=== PATIENT | male | born 2005 | race Two or more races ===

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

== ENCOUNTER 2025-08-26 11:19 | Outpatient (REF) | payer MEDICAID, SELFPAY ==
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
--- OUTSIDE RECORDS SUMMARY | 2025-08-26 13:42 | XMS_ITS | Encounter Summary ---
Author Organization [facility] Address [address] [place] [address] Phone Care Team Providers Care Car Repossessor Name Role Phone Loren Mcdermott MD Primary Care Provider Ary trujillo Encounter Details Date Type Department Care Team (Late st Contact Info) Description 06/19/2017 Conversion Encounter [facility] - [address] [address] Social History Tobacco Use Types Packs/Day Years Used Date Smoking Tobacco: Never Comments:Never smoker Sex and Gender Information Value Date Recorded Sex Assigned at Male 09/02/2019 1:50 PM EDT Legal Sex Male 5:24 PM EDT Gender Identity Male 09/02/2019 1:50 PM EDT Sexual Orientation Straight 11/09/2020 9: 48 AM EST documented as of this encounter Plan of Treatment Not on file documented as of this encounter Visit Diagnoses Not on filedocumented in this encounter Care Teams Car Repossessor Relationship Specialty Start Date End Date Lorne Mcdermott MD PCP - General 09/23/18 09/30/18 documented as of this encounter
--- OUTSIDE RECORDS SUMMARY | 2025-08-26 13:42 | XMS_ITS | Encounter Summary ---
Author Organization [facility] Address [address] [place] [phone] Phone Care Team Providers Care Drywall Applicator Name Role Phone Lorne Mcdermott MD Primary Care Provider Ary trujillo Encounter Details Date Type Department Care Team (Late st Contact Info) Description 01/27/2017 Documentation [facility] [address] [place], [place] [id number] Family Medicine, Physician [address] [place] [address] Social History Tobacco Use Types Packs/Day Years [...] on filedocumented in this encounter Care Teams Drywall Applicator Relationship Specialty Start Date End Date Lorne Mcdermott MD PCP - General 09/23/18 09/30/18 documented as of this encounter
--- OUTSIDE RECORDS SUMMARY | 2025-08-26 13:42 | XMS_ITS | Encounter Summary ---
Author Organization [facility] Address [address] [place] [phone] Phone Care Team Providers Care Veneer Jointer Operator Name Role Phone Lorne Mcdermott MD Primary Care Provider Ary trujillo Encounter Details Date Type Department Care Team (Late st Contact Info) Description 06/18/2017 Documentation [facility] Family Medicine [address] [place], [place] [id number] Family Medicine, Physician [address] [place] [address] Social History Tobacco Use Types Packs/Day Years [...] on filedocumented in this encounter Care Teams Veneer Jointer Operator Relationship Specialty Start Date End Date Lorne Mcdermott MD PCP - General 09/23/18 09/30/18 documented as of this encounter
--- OUTSIDE RECORDS SUMMARY | 2025-08-26 13:42 | XMS_ITS | Encounter Summary ---
Author Organization [email or web address] [facility] Address [address] [place] [address] [address] [place] [id number] Care Team Providers Care Brake Repairer Name Role Phone Eleonora Rogers CNP Primary Care Provider [phone] Encounter Details Date Type Department Care Team (Latest Contact Info) Description 08/26/2025 Travel Social History Tobacco Use Types Packs/Day Years Used Date Smoking Tobacco: Never Passive Smoke Exposure: Never Smokeless Tobacco: Never Sex and Gender Information Value Date Recorded Sex Assigned at Male 09/02/2022 10:17 AM EDT Legal Sex Male 10:17 AM EDT Gender Identity Male 09/02/2022 10:17 AM EDT Sexual Orientation Straight 09/02/2022 10 :17 AM EDT documented as of this encounter Plan of Treatment Upcoming Encounters Date Type Department Care Team (Late st Contact Info) Description 09/12/2025 9:30 AM EST Clinical Support [facility] [address] [place] [address] 09/16/2025 10:00 AM EST Office Visit [facility] [address] [place] [address] Eleonora Rogers CNP [address] [place] [address] documented as of this encounter Visit Diagnoses Not on filedocumented in this encounter Care Teams Brake Repairer Relationship Specialty Start Date End Date Eleonora Rogers CNP [address] [place] [address] PCP - General Family Medicine 08/26/25 documented as of this encounter
--- OUTSIDE RECORDS SUMMARY | 2025-08-26 13:42 | XMS_ITS | Encounter Summary ---
Author Organization [facility] Address [address] [place] [address] Phone Care Team Providers Care Lmft Name Role Phone Lorne Mcdermott MD Primary Care Provider Ary trujillo Encounter Details Date Type Department Care Team (Late st Contact Info) Description 06/19/2017 Documentation [facility] [place] Medicine [address] [place], [place] [phone] Family Medicine, Physician [address] [place] [address] Social History Tobacco Use Types Packs/Day Years [...] on filedocumented in this encounter Care Teams Lmft Relationship Specialty Start Date End Date Lorne Mcdermott MD PCP - General 09/23/18 09/30/18 documented as of this encounter
--- OUTSIDE RECORDS SUMMARY | 2025-08-26 13:42 | XMS_ITS | Encounter Summary ---
Author Organization [facility] Address [address] [place] [address] Phone Care Team Providers Care Ship Engines Operating Engineer Name Role Phone Lorne Mcdermott MD Primary Care Provider Ary trujillo Encounter Details Date Type Department Care Team (Late st Contact Info) Description 05/23/2017 Documentation [facility] [place] [address] [place], [place] [phone] Family Medicine, Physician [address] [place] [address] Social History Tobacco Use Types Packs/Day Years [...] on filedocumented in this encounter Care Teams Ship Engines Operating Engineer Relationship Specialty Start Date End Date Lorne Mcdermott MD PCP - General 09/23/18 09/30/18 documented as of this encounter
--- OUTSIDE RECORDS SUMMARY | 2025-08-26 13:42 | XMS_ITS | Clinical Summary ---
Author Organization [employer] Address [address] [place] [address] Care Team Providers Care Coat Baster Name Role Phone Eleonora Rogers SPORTS COORDINATOR Primary Care Provider [phone] Allergies Active Allergy Reactions Criticality Noted Date Comments Food 08/12/2017 Fresh vegetables, fresh fruit Germanium 08/19/2025 Molds & Smuts 08/12/2017 Penicillins High 01/26/2016 Pollen Extract 08/12/2017 Dogs, cats, mice, dust [place] Extract 08/19/2025 Medications azithromycin (Zithromax) 250 MG tablet TAKE 2 TABLETS BY MOUTH ON DAY 1, THEN TAKE 1 TABLET DAILY ON DAYS 2-5 08/02/20 25 Active Albuterol Sulfate (ProAir RespiClick) 108 (90 Base) MCG/ACT aerosol powder Inhale 2 puffs every 4 (four) hours. Active chlorhexidine (Peridex) 0.12 % solution Place 15 mL into mouth between cheek and gum every 12 (twelve) hours. 02/03/20 19 Active traZODone (Desyrel) 50 MG tablet Take 50 mg by mouth at bedtime. 04/18/20 20 Active hydroCHLOROthiaz elmer (HYDRODiuril) 25 MG tabletIndication s:Primary hypertension Take 1 tablet (25 mg) by mouth Once per day. 30 tablet 11 08/26/20 25 026 Active Cetirizine HCl 10 MG capsule 025 Discontinued cholecalciferol (Vitamin D-3) 50 MCG (1999) capsule Take by mouth at bed time. 06/10/20 22 025 Discontinued clotrimazole (Lotrimin) 1 % cream Apply topically every 12 (twelve) hours. 06/06/20 22 025 Discontinued cyclobenzaprine (Flexeril) 10 MG tablet Take 10 mg by mouth if needed in the morning, at noon, and at bedtime. 04/24/20 21 025 Discontinued famotidine (Pepcid) 20 MG tablet Take 1 tablet by mouth. 08/02/20 21 025 Discontinued Active Problems Problem Noted Date Diagnosed Date Abdominal pain 08/19/2025 Black stools 08/19/2025 Closed fracture of scapula 08/19/2025 Closed fracture of sternum 08/19/2025 Contusion of both lungs 08/19/2025 Epigastric pain 08/19/2025 Functional constipation 08/19/2025 Gastroesophageal reflux disease 08/19/2025 Hematochezia 08/19/2025 High alanine aminotransferase (ALT) level 2024 Indigestion 08/19/2025 Nonalcoholic fatty liver 08/19/2025 Pain associated with defecation 08/19/2025 Pneumothorax, left 08/19/2025 History of 2019 novel coronavirus disease (COVID -19) 02/04/2022 Overview (08/19/2025): Nov 2021 COVID-19 vaccination refused 02/04/2022 Refused influenza vaccine 09/13/2021 Fatty liver 09/02/2019 Overview (08/19/2025): 08/23- Saw adult GI... lots of lab work and US.. still with elevated liver enzymes, US c/w fatty liver. Sugg dietary change and exercise. 08/21 - Abnormal LFT's, has seen GI, needs f/u. Not taking Vit E, Poor vision 09/02/2019 Anxiety 08/30/2018 Overview (08/19/2025): Sees therapist at school, not sure what agency. Seasonal allergic rhinitis 08/30/2018 BMI 39.0-39.9,adult 08/12/2017 Multiple food allergies 08/12/2017 Psychosocial stressors 08/12/2017 Overview (08/19/2025): Presently in care of grandparents, open DCF case Eczema 01/17/2010 Encounters Date Type Department Care Team Description 08/26/2025 10:45 AM EDT Office Visit [facility] [address] [place] [address] Eleonora Rogers CNP Encounter for physical examination (Primary Dx); Dislocation of left shoulder joint, sequela; Primary hypertension 08/26/2025 Travel 08/19/2025 Telephone [facility] [address] [place] [address] Kendy Lucero MA chart prep 08/19/2025 Patient Outreach [facility] [address] [place], [place] [phone] Art Fajardo MD Pre-visit Planning (SDOH screening unable to complete. ) 07/20/2025 Telephone [facility] [address] [place] [address] Art Fajardo MD CHW - New Patient Assistance from Last 3 Months Immunizations Immunization Administration Dates Next Due COVID-19 Non-US Vaccine, Pro duct Unknown 09/12/2006 DTaP, 5 pertussis antigens 08/04/2008,,01/20/2004,07/14,2003 HPV 9-Valent 08/12/2017,02/02/2016 Hep A, ped/adol, 2 dose 02/02/2016,11/04/2014 Hep B, Adolescent or Pediatric 6,09/12/2006,01/20/2004,04/08 Hep B, Unspecified 01/20/2004 Hib (PRP-T) 09/12/2006, 5,01/20/2004,07/14,2003 Hib / Hep B 09/12/2006 IPV 08/04/2008, 4,2003,05/17 Influenza injectable quadriv alent preservative free 11/09/2020,09/02/2019,08/28/2018,08/12 Influenza live intranasal qu adrivalent LIAV4 10/15/2013 Influenza, IIV3, injectable 12/04/2009, 6,11/26/2004 Influenza, Split (incl. nereida fied surface antigen) 12/07/2010 MMR 08/04/2008,03/23/2004 Meningococcal MCV4P ACYW-135 09/02/2019,11/04/19 15 Novel [id number], all formulations 12/04/2009 Pneumococcal Conjugate PCV 7 11/26/2004, 01/20/2004,2003,05/17 Tdap 04/30/2021,11/04/2014 Varicella 08/04/2008,03/23/2004 Social History Tobacco Use Types Packs/Day Years Used Date Smoking Tobacco: Never Passive Smoke Exposure: Never Smokeless Tobacco: Never Tobacco Cessation:Counseling Given: Not Answered Sex and Gender Information Value Date Recorded Sex Assigned at Male 09/02/2022 10:17 AM EDT Legal Sex Male 10:17 AM EDT Gender Identity Male 09/02/2022 10:17 AM EDT Sexual Orientation Straight 09/02/2022 10 :17 AM EDT Last Filed Vital Signs Vital Sign Reading [...] Mass Index 34.67 08/26/2025 10:26 AM EDT Plan of Treatment Upcoming Encounters Date Type Department Care Team (Late st Contact Info) Description 09/12/2025 9:30 AM EST Clinical Support [facility] [address] [place] [address] 09/16/2025 10:00 AM EST Office Visit [facility] [address] [place] [address] Eleonora Rogers, SPORTS COORDINATOR [address] [place] [address] Health Maintenance Due Date Last Done Comments Chlamydia and Gonorrhea Screening 2003 Depression Screening 2003 SDOH Screening 2003 Disability Screening 2003 Alcohol/Substance Use Screening 2015 Family Planning (PISQ) 2018 Meningococcal B Vaccine (1 of 2 - Standard) 2019 Hepatitis C Screening 2021 Influenza Vaccine (#1) 2026 , 09/02/2019, 08/28/2018, Additional history exists Postponed from 07/04/2025 (Patient Refused) COVID-19 Vaccine ( - season) 2026 Postponed from 07/04/2025 (Patient Refused) Tobacco Screening 08/26/2026 08/26/2025 Lipid Panel 06/06/2027 06/06/2022 DTaP/Tdap/Td Vaccines (8 - Td or Tdap) 04/30/2031 04/30/2021, 11/04/2014, 08/04/2008, Additional history exists Zoster Vaccines (1 of 2) 2053 RSV Patients and Patients Aged 60 years or older (1 - 1-dose 75+ series) 2078 Pneumococcal Vaccine: Pediatrics (0 to 5 Years) and At-Risk Patients (6 to 49) Years Aged Out 11/26/2004, 01/20/2004, 2003, Additional history exists No longer eligible based on patient's age to complete this topic HIB Vaccines Completed 09/12/2006, 09/03, 11/26/2004, Additional history exists IPV Vaccines Completed 08/04/2008, 01/01, 2003, Additional history exists Hepatitis A Vaccines Completed 02/02/2016, 11/04/19 15 Hepatitis B Vaccines Completed 02/02/2016, 09/12/2006, 09/12/2006, Additional history exists HPV Vaccines Completed 08/12/2017, 02/02/2016 Meningococcal Vaccine Completed 09/02/2019, 015 HIV Screening Completed 06/06/2022 RSV under 20 months Aged Out No longe r eligible based on patient's age to complete this topic Rotavirus Vaccines Aged Out No longer eligible based on patient's age to complete this topic Procedures Procedure Name Priority Date/Time Associated Diagnosis Comments HIV 1/2 ANTIGEN/ANTIBODY, FOURTH GENERATION W/RFL Routine 06/06/2022 1:58 PM EDT LIPID PANEL, STANDARD Routine 06/06/2022 1:58 PM EDT from Last 3 Months or Most Recently Relevant to Health Maintenance Results * HIV 1/2 ANTIGEN/ANTIBODY,FOURTH GENERATION W/RFL (06/06/2022 1:58 PM EDT) Pathologist [facility] HIV-1/2 ANTIGEN AND ANTIBODIES, 4TH GENERATION W/ REFLEX NON-REACT JAZMYNE NON-REACT JAZMYNE [facility] Comment: HIV-1 antigen and HIV-1/HIV-2 antibodies were not detected. There is no laboratory evidence of HIV infection. PLEASE NOTE: This information has been disclosed to you from records whose confidentiality may be protected by state law. If your state requires such protection, then the state law prohibits you from making any further disclosure of the information without the specific written consent of the person to whom it pertains, or as otherwise permitted by law. A general authorization for the release of medical or other information is NOT sufficient for this purpose. For additional information please refer to http://education.[employer].Razient/faq/DKJ915 (This link is being provided for informational/ educational purposes only.) The performance of this assay has not been clinically validated in patients less than 2 years old. 06/06/2022 1:58 PM EDT us Afsaneh Zhao MEDICAL COLLECTIONS SPECIALIST LAB BLOOD ORDERABLES Final Res ult [facility] [address] * (ABNORMAL) LIPID PANEL, STANDARD (06/06/2022 1:58 PM EDT) Pathologist [facility] Chol/HDLC Ratio 5.1(H) <5.0 (calc) [facility] Cholesterol, Total 143 <170 mg/dL [facility] HDL Cholesterol 28(L) >45 mg/dL [facility] LDL Cholesterol 83 <110 mg/dL (calc) [facility] Comment: LDL-C is now calculated using the Maximo calculation, which is a validated novel method providing better accuracy than the Friedewald equation in the estimation of LDL-C. Carlton BOWEN et al. YADIRA. 2013;310(19): 3922-7712 (http://Clearwire.evocatal/faq/STO373) Non-HDL Cholesterol 115 <120 mg/dL (calc) [facility] Comment: For patients with diabetes plus 1 major ASCVD risk factor, treating to a non-HDL-C goal of <100 mg/dL (LDL-C of <70 mg/dL) is considered a therapeutic option. Triglycerides 228(H) <90 mg/dL [facility] Comment: If a non-fasting specimen was collected, consider repeat triglyceride testing on a fasting specimen if clinically indicated. Swati et al. J. of Clin. Lipidol. 2015;9:129-169. 06/06/2022 1:58 PM EDT us Afsaneh Zhao [facility] LAB BLOOD ORDERABLES Final Res ult [facility] [address] from Last 3 Months or Most Recently Relevant to Health Maintenance Insurance C3 Care Teams Coat Baster Relationship Specialty Start Date End Date Eleonora Rogers CNP [address] [place] [phone] PCP - General Family Medicine 08/26/25
--- OUTSIDE RECORDS SUMMARY | 2025-08-26 13:42 | XMS_ITS | Encounter Summary ---
Author Organization [facility] Address [address] [place] [address] Phone Care Team Providers Care Addiction Social Worker Name Role Phone Unavailable Primary Care Provider Unavailabl e Encounter Details Date Type Department Care Team (Latest Contact Info) Description 08/07/2020 ED [facility] Social History Tobacco Use Types Packs/Day Years Used Date Smoking Tobacco: Never Smokeless Tobacco: Never Comments:Never smoker Alcohol Use Standard Drinks/Week Comments No 0 (1 standard drink = 0.6 oz pur e alcohol) Hunger/Food Answer Date Recorded No 07/29/2020 Stable Housing Answer Date Recorded No 07/29/2020 Transportation Concerns Answer Date Rec orded No 07/29/2020 Hazards in Home Answer Date Recorded No 11/21/2018 Financing Utilities Answer Date Recorde d No 11/21/2018 Safety at Home Answer Date Recorded No 11/21/2018 Outside Support Answer Date Recorded No 11/21/2018 Understanding Health Concerns Answer Da te Recorded No 11/21/2018 Financing Health Concerns Answer Date R ecorded No 11/21/2018 Missing School or Work Answer Date Kevin rded No 11/21/2018 Sex and Gender Information Value Date Recorded Sex Assigned at Male 09/02/2019 1:50 PM EDT Legal Sex Male 5:24 PM EDT Gender Identity Male 09/02/2019 1:50 PM EDT Sexual Orientation Straight 11/09/2020 9: 48 AM EST documented as of this encounter ED Notes * DOCUMENTS, [facility] - 08/07/2020 7:27 PM EDT EDPDOC [facility] EDM *LIVE* ED Physician Documentation Summary Report Patient: ELLEN BARNES JR 15/M Service Date: 08/07/20 Account: [id number] : 2005 Service Time: 1928 PCP: PRASANNA MR#: [id number] Pre-Evaluation Initial Comments 15 year old male complaining of Anxiety It Feels Like Anixety Pre-Evaluation Screening Done: Yes Acute Distress: No Vital Signs Reviewed: Yes Further ER Evaluation Required: Yes Known Signs of Infection: No Ebola Infection Screening: No Risk CHARLIE KING Aug 07, 2020 16:26 ED Physician: CHARLIE KING Documentation Date/Time: 08/07/20 1626 Cosigner: BEN DESAI MD Cosigner: <Electronically signed by TIO RUFFIN> 08/07/20 1626 <Electronically signed by BEN DESAI MD> 08/10/20 1024 documented in this encounter Plan of Treatment Not on file documented as of this encounter Visit Diagnoses Not on filedocumented in this encounter
--- OUTSIDE RECORDS SUMMARY | 2025-08-26 13:42 | XMS_ITS | Encounter Summary ---
Author Organization [facility] Address [address] [place] [address] Phone Care Team Providers Care Steel Engraver Name Role Phone Lorne Mcdermott MD Primary Care Provider Ary trujillo Encounter Details Date Type Department Care Team (Late st Contact Info) Description 07/13/2012 Documentation [facility] [place] Family Medicine [address] [place], [place] [phone] Family Medicine, Physician [address] [place] [address] Social History Tobacco Use Types Packs/Day Years Used Date Smoking Tobacco: Never Assessed Sex and Gender Information Value Date Recorded Sex Assigned at Male 09/02/2019 1:50 PM EDT Legal Sex Male 5:24 PM EDT Gender Identity Male 09/02/2019 1:50 PM EDT Sexual Orientation Straight 11/09/2020 9: 48 AM EST documented as of this encounter Plan of Treatment Not on file documented as of this encounter Visit Diagnoses Not on filedocumented in this encounter Care Teams Steel Engraver Relationship Specialty Start Date End Date Lorne Mcdermott MD PCP - General 09/23/18 09/30/18 documented as of this encounter
--- OUTSIDE RECORDS SUMMARY | 2025-08-26 13:42 | XMS_ITS | Encounter Summary ---
Author Organization [facility] Address [address] [place] [address] Phone Care Team Providers Care Gas Or Water Meter Installer Name Role Phone Lorne Mcdermott MD Primary Care Provider Ary trujillo Encounter Details Date Type Department Care Team (Late st Contact Info) Description 01/29/2012 Documentation [facility] [place] Family Medicine [address] [place], [place] [phone] Family Medicine, Physician [address] [place] [address] Social History Tobacco Use Types Packs/Day Years [...] on filedocumented in this encounter Care Teams Gas Or Water Meter Installer Relationship Specialty Start Date End Date Lorne Mcdermott MD PCP - General 09/23/18 09/30/18 documented as of this encounter
--- OUTSIDE RECORDS SUMMARY | 2025-08-26 13:42 | XMS_ITS | Encounter Summary ---
Author Organization [facility] Address [address] [place] [address] Phone Care Team Providers Care Singer And Unloader Name Role Phone Lorne Mcdermott MD Primary Care Provider Ary trujillo Encounter Details Date Type Department Care Team (Late st Contact Info) Description 01/29/2012 Documentation [facility] [place] Family Medicine [address] [place], [place] [phone] Family Medicine, Physician [address] [place] [address] Social History Tobacco Use Types Packs/Day Years [...] on filedocumented in this encounter Care Teams Singer And Unloader Relationship Specialty Start Date End Date Lorne Mcdermott MD PCP - General 09/23/18 09/30/18 documented as of this encounter
--- OUTSIDE RECORDS SUMMARY | 2025-08-26 13:42 | XMS_ITS | Encounter Summary ---
Author Organization [facility] Address [address] [place] [address] Phone Care Team Providers Care Yard Conductor Name Role Phone Lorne Mcdermott MD Primary Care Provider Ary trujillo Encounter Details Date Type Department Care Team (Late st Contact Info) Description 05/04/2012 [place] [facility] [place] [address] [place], [place] [phone] Family Medicine, Physician [address] [place] [address] Social History Tobacco Use Types Packs/Day Years [...] on filedocumented in this encounter Care Teams Yard Conductor Relationship Specialty Start Date End Date Lorne Mcdermott MD PCP - General 09/23/18 09/30/18 documented as of this encounter
--- OUTSIDE RECORDS SUMMARY | 2025-08-26 13:42 | XMS_ITS | Clinical Summary ---
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 0 7 Active fluticasone (FLONASE) 50 MCG/ACT nasal sprayIndications :Chronic seasonal allergic rhinitis due to pollen Administer 2 sprays into each nostril daily. 1 Units 3 9 Active Probiotic Product (Probiotic Complex Acidophilus) capsuleIndicatio ns:Diarrhea, unspecified type Take 1 tablet as directed daily 90 capsule 1 0 Active Additional Information Patient not taking.Reported on 02/04/2022 traZODone 50 MG tablet TAKE 1 TABLET BY MOUTH EVERYDAY AT BEDTIME 0 Active omeprazole 20 MG delayed-release capsuleIndicatio ns:Gastroesophag eal reflux disease, unspecified whether esophagitis present Take 1 capsule (20 mg total) by mouth daily. Take medicine one hour before eating. 30 capsule 2 1 Active Additional Information Patient not taking.Reported on 02/16/2022 loratadine (Claritin) 10 MG tabletIndication s:Chronic seasonal allergic rhinitis due to pollen Take 1 tablet (10 mg total) by mouth daily. 30 tablet 5 1 Active Additional Information Patient not taking.Reported on 02/16/2022 cyclobenzaprine 10 MG tablet Take 10 mg by mouth 3 (three) times a day as needed. for muscle spams 1 Active famotidine 20 MG tablet Take 20 mg by mouth 2 (two) times a day as needed. 1 Active Active Problems Problem Noted Date Diagnosed Date History of 2018 novel coronavirus disease (COVID -19) 02/04/2022 Overview (02/04/2022): Nov 2021 COVID-19 vaccination refused 02/04/2022 Refused influenza vaccine 09/13/2021 Assessment & Plan (09/13/2021 9:25 AM EST): 09/23 Fatty liver 09/02/2019 Overview (09/13/2021): 08/23- Saw adult GI... lots of lab work and US.. still with elevated liver enzymes, US c/w fatty liver. Sugg dietary change and exercise. 08/21 - Abnormal LFT's, has seen GI, needs f/u. Not taking Vit E, Poor vision 09/02/2019 Seasonal allergic rhinitis 08/30/2018 Anxiety 08/30/2018 Overview (02/04/2022): Sees therapist at school, not sure what agency. Assessment & Plan (07/13/2021 4:17 PM EDT): WHO with Eliane Trin[facility], today. Psychosocial stressors 08/12/2017 Overview (09/02/2019): Presently in care of grandparents, open DCF case Assessment & Plan (12/16/2017 5:23 PM EST): See previous notes, should see a counselor. BMI 39.0-39.9,adult 08/12/2017 Assessment & Plan (12/16/2017 5:23 PM EST): Probable cause of increased liver enzymes, Assessment & Plan (08/12/2017 12:23 PM EDT): Encouraged to eat healthy, add cardio to exercise program Multiple food allergies 08/12/2017 Assessment & Plan (08/12/2017 12:25 PM EDT): With oral allergies to many raw veggies and fruits,told to follow up with boarding mother, should eat more cooked vegetables (likes broccoli) Eczema 01/17/2010 Resolved Problems Problem Noted Date Diagnosed Date Resolved Date Acne vulgaris 08/28/2018 09/02/2019 Mild intermittent asthma without complication 12/03/19 18 02/04/2022 Chest pain on breathing 07/22/201708/04 Assessment & Plan (12/16/2017 5:21 PM EST): Same assessment, is precordial catch Assessment & Plan (08/12/2017 10:46 AM EDT): Seems now to be clearly reflux (and stress) related, cardi w/u in ED negative Assessment & Plan (07/22/2017 4:22 PM EDT): From heartache , mostly stress, but may well have reflux since describes burning, is at risk, being obese, no signs of heart nor lung problems, like asthma. Practice your breathing exercises, take zantac Right upper quadrant abdominal pain 07/22/2017 08/12/2017 Assessment & Plan (08/12/2017 10:44 AM EDT): Better now Assessment & Plan (07/22/2017 4:24 PM EDT): With a positive mcconnell's sign , eats a lot of fatty food, I wonder about gall bladder disease. Episodic tension-type headache 07/22/2017 09/02/2019 Assessment & Plan (12/16/2017 5:22 PM EST): Is related to stress, with sensitivity to light, may well be migraines. Assessment & Plan (08/12/2017 10:44 AM EDT): improving Assessment & Plan (07/22/2017 4:23 PM EDT): From stress, no signs of INFORMATION SYSTEMS COORDINATOR disease Gastroesophageal reflux 07/22/201703/03 Assessment & Plan (12/16/2017 5:26 PM EST): Never got the ranitidine as instructed. Please get it. Also will refer to GI. Assessment & Plan (08/12/2017 11:05 AM EDT): Causing chest pain, at least in part, got claritin, represprescribed ranitidine Assessment & Plan (07/22/2017 4:23 PM EDT): See above. Avoid spicy foods. Adjustment disorder with depressed mood 07/22/2017 03/17/2018 Assessment & Plan (08/12/2017 10:46 AM EDT): Secondary to severe psychosocial stressors Assessment & Plan (07/22/2017 4:25 PM EDT): After parents separation, by history, unstable behavior by mom, with some suicidal ideation, now better. See therapist, call if has any self injurious thoughts, and call crisis. See me in a month. Chest pain on breathing From heartache , mostly stress, but may well have reflux since describes burning, is at risk, being obese, no signs of heart nor lung problems, like asthma. Practice your breathing exercises, take zantac Gastroesophageal reflux See above. Avoid spicy foods. Episodic tension-type headache From stress, no signs of INFORMATION SYSTEMS COORDINATOR disease Right upper quadrant abdominal pain With a positive mcconnell's sign , eats a lot of fatty food, I wonder about gall bladder disease. 1. Chest pain on breathing 2. Right upper quadrant abdominal pain 3. Episodic tension-type headache, not intractable 4. Gastroesophageal reflux disease, esophagitis presence not specified ranitidine 150 MG tablet 5. Adjustment disorder with depressed mood Childhood obesity 07/14/2012 08/30/2018 Redundant prepuce and phimosis 07/14/2012 09/02/2019 Immunizations Immunization Administration Dates Next Due DTaP 5 08/04/2008, 5,01/20/2004,07/14,2003 H1N1 12/04/2009 HPV Vaccine 9 Valent 08/12/2017,02/02/2016 Hep A, ped/adol 02/02/2016,11/04/2014 Hep B / HiB 09/12/2006 Hep B, ped/adol 02/02/2016,01/20/2004,2003 Hib (PRP-T) 11/26/2004, 4,2003,05/17 IPV 08/04/2008, 4,2003,05/17 Influenza Split 12/07/2010 Influenza, injectable, quadr ivalent, preservative free 11/09/2020,09/02/2019,08/28/2018,08/12 Influenza, injectable, trivalent 12/04/2009,09/03,11/26/2004 Influenza, intranasal, quadrivalent 10/15/2013 MMR 08/04/2008,03/23/2004 Meningococcal Conj (Menactra) MCV4P 09/02/2019,0 11/04/2014 Pneumococcal Conjugate 11/26/2004,2003,2003,05/17 Tdap 04/30/2021,11/04/2014 Unknown Vaccine 09/12/2006 Varicella 08/04/2008,03/23/2004 Family History Medical History Relation Name Comments Asthma Father Krishan Asthma Mother Nery Depression Mother Nery Breast cancer Other Stomach cancer Other Tongue cancer Other Hyperlipidemia Paternal Grandfather Hypertension Paternal Grandmother Relation Name Status Comments Father Krishan (Age 37) of as thma, sudden onset 11/22 Maternal Grandfather Maternal Grandmother Alive Mother Nery Alive Mother: Alive a nd well Other No family histo ry of Strabismus, No family history of ADD/ADHD, No family history of Hyperlipidemia, No family history of Diabetes mellitus, No family history of *Thrombophilia, No family history of Seizure disorder, Family history of Obesity, No family history of *Sudden /VA under 55, Family history of *CVA/Stroke, No family history of Asthma, Family history of Cancer - breast,stomach,tongue, No family history of *Heart Disease, No family history of Deafness, Family history of Migraines Paternal Grandfather Paternal Grandmother Sister Alive Sister: Alive a nd well Social History Tobacco Use Types Packs/Day Years Used Date Smoking Tobacco: Never Smokeless Tobacco: Never Comments:Never smoker Alcohol Use Standard Drinks/Week Comments No 0 (1 standard drink = 0.6 oz pur e alcohol) Hunger/Food Answer Date Recorded In the last 12 months, did y ou or your family ever eat less than you felt you should because there wasn't enough money for food? No 02/04/2022 Stable Housing Answer Date Recorded Are you worried that in the next 2 months you may not have stable housing? No 02/04/2022 Transportation Concerns Answer Date Rec orded In the last 12 months, have you or your family ever had to go without healthcare because you didn't have a way to get there? No 02/04/2022 Hazards in Home Answer Date Recorded Think about the place you li ve. Do you have problems with any of the following? Pests (mice or roaches), mold, no/not working smoke detectors, water leaks, no window guards. No 2021 Financing Utilities Answer Date Recorde d In the last 12 months, has t he electric, gas, oil, or water company threatened to shut off your services in your home? No 02/04/2022 Safety at Home Answer Date Recorded Are you or your family worried about feeling saf e in your home? No 02/04/2022 Outside Support Answer Date Recorded Do you feel that you need mo re support from other people or programs to help you care for yourself or your family? Yes 02/04/2022 Understanding Health Concerns Answer Da te Recorded Do you need help understandi ng your or your child's healthcare needs (diagnosis, medications, plan, etc.)? No 02/04/2022 Financing Health Concerns Answer Date R ecorded In the last 12 months, was t here a time when your child needed to see a doctor or get medications or supplies but could not because of cost? No 02/04/2022 Missing School or Work Answer Date Kevin rded Did you or your child miss s chool or work because of a health problem that could have been avoided? No 02/04/2022 Sex and Gender Information Value Date Recorded Sex Assigned at Male 09/02/2019 1:50 PM EDT Legal Sex Male 5:24 PM EDT Gender Identity Male 09/02/2019 1:50 PM EDT Sexual Orientation Straight 11/09/2020 9: 48 AM EST Last Filed Vital Signs Vital Sign Reading Time Taken Comments Blood Pressure 129/82 02/04/2022 9:08 AM EDT Pulse 94 02/04/2022 9:08 AM EDT Temperature 38.8 C (101.9 F) 02/16/2022 9:49 AM EDT Respiratory Rate - - Oxygen Saturation - - Inhaled Oxygen Concentration - - Weight 122 kg (268 lb 9.6 oz) 02/16/2022 9:49 AM EDT Height 173.4 cm (5' 8.25 ) 02/04/2022 9:08 AM ED T Body Mass Index 40.54 02/04/2022 9:08 AM EDT Plan of Treatment Health Maintenance Due Date Last Done Comments Men B Vaccine (1 of 2 - Standard) 2019 Influenza Vaccines (#1) 2025 11/09/19, 09/02/2019, 08/28/2018, Additional history exists COVID-19 Vaccine (1 - 2024-2 6 season) 2025 DTaP,Tdap,and Td Vaccines (8 - Td or Tdap) 04/30/2031 04/30/2021, 11/04/2014, 08/04/2008, Additional history exists Pneumococcal Vaccine Completed 11/26/2004, 01/20/2004, 2003, Additional history exists HIB Vaccines Completed 09/12/2006, 11/04, 01/20/2004, Additional history exists IPV Vaccines Completed 08/04/2008, 01/01, 2003, Additional history exists MMR Vaccines Completed 08/04/2008, 03/23/2004 Varicella Vaccines Completed 08/04/2008, 03/23/2004 Hepatitis A Vaccines Completed 02/02/2016, 11/04/19 Hepatitis B Vaccines Completed 02/02/2016, 09/12/2006, 01/20/2004, Additional history exists HPV Vaccines Completed 08/12/2017, 02/02/2016 Meningococcal Vaccine Completed 09/02/2019, 015 [place] [facility] [place] [facility]
[2025-08-26 14:44] LABS: MANUAL DIFF FLAG NO
[2025-08-26 14:51] LABS: Hematocrit 48.2 % (42.0-52.0); Hemoglobin 15.9 g/dl (14.0-18.0); Imm Gran Abs Auto 0.03 X10*3/uL (0.00-0.03); Imm Gran Pct Auto 0.4 % (0.0-0.4); Lymphocytes Absolute Auto 2.1 X10*3/uL (1.2-4.9); Mean Corpuscular HGB Conc 33.0 g/dl (31.0-36.0); Mean Corpuscular Hemoglobin 28.3 pg (27.0-33.0); Mean Corpuscular Volume 85.8 fL (80.0-98.0); NRBC Abs Auto 0.000 X10*3/uL (0.0-0.012); NRBC Pct Auto 0.0 /100WBC (0.0-0.2); Platelet Count 276 X10*3/uL (160-400); Red Blood Count 5.62 X10*6/uL (4.60-5.80); White Blood Count 6.9 X10*3/uL (4.8-10.8)
[2025-08-26 15:20] LABS: Anion Gap 13 (12-20); Blood Urea Nitrogen 12 mg/dL (9-16); Calcium 9.8 mg/dL (8.4-10.2); Carbon Dioxide 28 mmol/L (22-29); Chloride 105 mmol/L (96-108); Cholesterol 162 mg/dL (<200); Estimated Glomerular Filt Rate > 60; HDL Cholesterol 38 mg/dL (>40); Potassium 3.8 mmol/L (3.3-5.1); Sodium 142 mmol/L (135-145); Triglycerides 68 mg/dL (<150)
[2025-08-27 04:04] LABS: HIV Num 1 0.06 S/CO (0.00-0.99); ~HepC Num1 0.09 S/CO (0.00-0.79); ~Hepatitis C Antibody Nonreactive (Nonreactive)
== END 2025-08-26 11:20 | disposition home or self-care (01) ==
LOC: HO.CHCLDS 11:19
DX: Z00.00 Encounter for general adult medical examination without abnormal findings (principal); Z11.4 Encounter for screening for human immunodeficiency virus [HIV]; Z11.59 Encounter for screening for other viral diseases; Z11.3 Encounter for screening for infections with a predominantly sexual mode of transmission
CPT/HCPCS: 36415; 80048; 80061; 85025; 86592; 86803; 87389